=== PATIENT | male | born 1960 | race Caucasian/White ===

== ENCOUNTER 2017-04-06 21:44 | Emergency (ER) | payer OTHER ==
[2017-04-06 22:02] VITALS: BP 119/79
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
== END 2017-04-06 23:54 | disposition home or self-care (01) ==
LOC: ED 21:44
DX: S13.4XXA Sprain of ligaments of cervical spine, initial encounter (principal); V43.52XA Car driver injured in collision with other type car in traffic accident, initial encounter; Y92.488 Other paved roadways as the place of occurrence of the external cause; Y93.89 Activity, other specified; Y99.9 Unspecified external cause status
CPT/HCPCS: 72040; 99283

== ENCOUNTER 2018-10-13 16:55 | Outpatient (CLI) | payer SELFPAY ==
--- NOTE | 2018-10-13 23:20 | XRay Report ---
XR RIBS UNILAT 2V RT CLINICAL INDICATION: Male, 58 years of age. Rib pain COMPARISON: None. FINDINGS: Single frontal view of the chest and 3 views of the right ribs obtained. Mild cardiac enlar gement. Shallow inspiration. Mild linear atelectasis at the lung bases. No large consolidation or eff usion. No pneumothorax. Right ribs are grossly intact. No step-off deformity or discrete fracture line. IMPRESSION: 1. Shallow inspiration. Mild atelectasis. 2. Right ribs are grossly intact. This document is electronically signed by Patric Gunter DO., October 13 2018 05:54:32 PM ET
== END 2018-10-13 16:56 | disposition home or self-care (01) ==
LOC: XRAY 16:55
PROVIDERS: ATTEND Internal Medicine
DX: J98.11 Atelectasis (principal)